=== PATIENT | female | born 1945 | race Caucasian/White ===

== ENCOUNTER 2017-12-20 04:09 | Inpatient (IN) | payer OTHER ==
[~2017-12-20] VITALS: Ht 154.9 cm; Wt 99.3 kg
[~2017-12-20 04:09] MED LIST: CALCIUM 500 +1 EAC5 PO; CO Q-10100 MG; DICLOFENAC SODI75 M2 PO; FIBER500 MG; JANUMET 50-1,01 EACH PO; LEVOTHYROXINE200 MC1 PO; MULTIPLE VITAM1 EACH; NIASPAN500 M1 PO
[2017-12-20] MEDS ORDERED: TRAMADOL HCL50 M1 PO (06:42)
[2017-12-20] MEDS ORDERED: CRESTOR5 M1 PO (06:42)
--- NOTE | 2017-12-20 09:13 | Surgical Discharge Summary ---
Visit Information Visit Dates Admission Date: 12/20/17 Discharge Date: 12/22/17 History of Present Illness Chief Complaint: PAIN R/T OA Medical History Isolation History: Standard Surgical History Pertinent Surgical History: hip replacement Review of Systems: SEE H&P Hospital Course Course Attending Physician: Johana BENJAMIN,Lucio Primary Care Physician: Marina BENJAMIN,Formerly Named [facility] Course: Patient was admitted to the hospital for an elective total joint replacement. Procedure was tolerated well and patient was transferred to a general surgical floor. Diet was advanced and tolerated. Physical therapy performed evaluation and treatment. At time of hospital discharge, vital signs were stable, neurovascular status was intact, and pain was controlled with the use of oral pain medications Complications: none Allergies: Coded Allergies: adhesive (RASH 12/08/17) ezetimibe (From VYTORIN) (LEG WEAKNESS 12/08/17) Disposition Summary Disposition Principal Diagnosis: primary oa right hip Additional Diagnosis: same, sp r total hip arthroplasty Discharge Disposition: home health services Discharge Instructions General Discharge Information Code Status: Full Code Patient's Diet: diabetic Patient's Activity: wbat Follow-Up Instructions/Appts: call to be seen in 2 weeks Medications at Discharge Discharge Medications: Stop taking the following medications: Diclofenac Sodium (Diclofenac Sodium) 75 MG TABLET.DR ORAL TWICE DAILY Tramadol HCl (Tramadol HCl) 50 MG TABLET ORAL 2X DAILY as needed for pain Continue taking these medications: Calcium Carbonate/Vitamin D3 (Calcium 500 + D Tablet) 500 MG-400 TABLET 1 Tablet ORAL TWICE DAILY Methylcellulose (Fiber) 500 MG TABLET Sitagliptin Phos/Metformin HCl (Janumet 50-1,000 MG Tablet) 50 MG-1,000 MG TABLET 1 Tablet ORAL TWICE DAILY Levothyroxine Sodium (Levothyroxine Sodium) 200 MCG TABLET 1 Tablet ORAL DAILY Niacin (Niaspan) 500 MG TAB.ER.24H 1 Tablet ORAL Every night Multivit With Calcium,Iron,Min (Multiple Vitamins For Women) 1 EACH TABLET Ubidecarenone (Co Q-10) 100 MG CAPSULE Rosuvastatin Calcium (Crestor) 5 MG TABLET 0.5 Tablet ORAL 3X/WK Start taking the following new medications: Apixaban (Eliquis) 2.5 MG TABLET 2.5 Milligram ORAL TWICE DAILY Qty = 60 No Refills Docusate Sodium (Docusate Sodium) 100 MG CAPSULE 100 Milligram ORAL TWICE DAILY as needed for CONSTIPATION Qty = 20 No Refills Oxycodone HCl/Acetaminophen (Percocet 5-325 MG Tablet) 5 MG-325 MG TABLET 1-2 Tablet ORAL EVERY 4 HOURS NEEDED as needed for PAIN Qty = 36 No Refills Sennosides/Docusate Sodium (Senna Plus Tablet) 8.6 MG-50 MG TABLET 2 Tablet ORAL AT BEDTIME NEEDED as needed for NO BM IN TWO DAYS Qty = 10 No Refills
--- NOTE | 2017-12-20 09:16 | Patient Discharge Instructions ---
Discharge Instructions General Discharge Information You were seen/treated for: Primary osteoarthritis right hip You had these procedures: Total hip arthroplasty, right Watch for these problems: Increasing pain despite the use of pain medication Increasing redness, warmth or swelling Drainage of any type from incision Inability to bear weight on operative leg Persistent nausea and vomiting Fever greater than 101.5 degrees Other wound care: Please keep wound clean and dry. No ointments or lotions of any type on or near incision. Your dressing will be changed by your nurse on the second day after your surgery. Daily dry dressing changes are recommended each day thereafter. Do not soak your wound- no tub baths/swimming. You may shower 48hr after surgery. Special Instructions: take medication as directed You will need to be on Eliquis, blood thinner to prevent blood clots, for the next 1 month Take pain medication as needed Diet Recommended Diet: Diabetic Activity Activity Limited to: Weight bear as tolerated Additional ACTIVITY Info: use assistive devices as needed Acute Coronary Syndrome Inclusion Criteria At DC or during hospital stay patient has or had the following: ACS DIAGNOSIS No Discharge Core Measures Meds if any: Prescribed or Continued at Discharge Meds if any: NOT Prescribed or Continued at Discharge Congestive Heart Failure Inclusion Criteria At DC or during hospital stay patient has or had the following: CHF DIAGNOSIS No Discharge Core Measures Meds if any: Prescribed or Continued at Discharge Meds if any: NOT Prescribed or Continued at Discharge Cerebrovascular accident Inclusion Criteria At DC or during hospital stay patient has or had the following: CVA/TIA Diagnosis No Discharge Core Measures Meds if any: Prescribed or Continued at Discharge Meds if any: NOT Prescribed or Continued at Discharge Venous thromboembolism Inclusion Criteria VTE Diagnosis No VTE Type NONE VTE Confirmed by (Test) NONE Discharge Core Measures - Per Current guidelines, there needs to be overlap - treatment for the first 5 days of Warfarin therapy. - If discharged on Warfarin prior to 5 days of - overlap therapy, the patient will need to be - assessed for post discharge needs including - *Post discharge parental anticoagulation - *Warfarin and/or parental anticoagulation education - *Follow up date to check INR post discharge At least 5 days overlap therapy as Inpatient No Meds if any: Prescribed or Continued at Discharge Note: Overlap Therapy is Warfarin and Anticoagulant Meds if any: NOT Prescribed or Continued at Discharge
--- NOTE | 2017-12-20 09:46 | Admission Core Measures ---
Acute Coronary Syndrome (CM) ACS Core Measures Acute Coronary Syndrome Diagnosis No Congestive Heart Failure (NEW) CHF Core Measures Congestive Heart Failure Diagnosis No Cerebrovascular Accident CVA Core Measures CVA/TIA Diagnosis No Venous Thromboembolism VTE Core Aditi (View Protocol) VTE Risk Factors Surgery No Mechanical VTE Prophylaxis d/t N/A MechProphylax Ordered No VTE Pharm Prophylaxis d/t NA PharmProphylax ordered Problem List As ranked by this Provider includes Assessment & Plan 1. Primary osteoarthritis of right hip HOME MEDS Home Med List Calcium Carbonate/Vitamin D3 (Calcium 500 + D Tablet) 500 MG-400 TABLET 1 TAB PO BID SUPPLEMENT (Reported) Diclofenac Sodium 75 MG TABLET.DR 1 TAB PO BID PAIN (Reported) Levothyroxine Sodium 200 MCG TABLET 1 TAB PO DAILY REPLACEMENT (Reported) Niacin (Niaspan) 500 MG TAB.ER.24H 1 TAB PO QPM SUPPLEMENT (Reported) Rosuvastatin Calcium (Crestor) 5 MG TABLET 0.5 TAB PO 3X/WK cholesterol ( Reported) Sitagliptin Phos/Metformin HCl (Janumet 50-1,000 MG Tablet) 50 MG-1,000 MG TABLET 1 TAB PO BID DM (Reported) Tramadol HCl 50 MG TABLET 1 TAB PO 2X DAILY PRN pain (Reported)
--- NOTE | 2017-12-20 10:00 | Operative Report ---
Operative/Inv Procedure Report Surgery Date: 12/20/17 Name of Procedure: Right total hip arthroplasty Pre-Operative Diagnosis: Right hip primary osteoarthritis Post-Operative Diagnosis: Same with final pathology pending Estimated Blood Loss: 50ml to 100ml Surgeon/Farm Consultant: Johana BENJAMIN,Manav Valdes PA Anesthesia: block Implants: Rosalia secure fit femoral stem size 8 with a 127 neck angle Size 52 acetabulum 36+0 Biolox femoral head Drains: None Specimens: Femoral head and acetabular reamings, degenerative labrum Microbiology: Urine Complications: None Condition: Stable Operative Indication: Patient is a 72-year-old woman with gradually worsening right hip symptoms. She was diagnosed with osteoarthritis but had continued increasing symptoms and destruction of the femoral head consistent with her diagnosis. She had symptoms that interfere with normal activities of daily living. Extent conservative measures did not result in any significant long-term relief and therefore she wished to proceed with total hip arthroplasty. Risks benefits and expectations of the surgical procedure were discussed which included but were not limited to persistent hip pain, need for subsequent surgery, infection, DVT, injury to blood vessel or nerve, leg length discrepancy dislocation and anesthesia risks. Operative/Procedure Note Note: Patient was brought to the operating room and transferred to the operating table. Once under appropriate anesthesia the patient was placed into a left lateral decubitus position with right side up. All bony prominences well- padded. The right lower extremity was prepped and draped in standard fashion. Preoperative IV and box were given prophylactically. A standard lateral incision was made for anticipated sup approach to the hip. The incision was taken down sharply to the underlying fascia. The fascia was incised in line with the skin incision. Hip was internally rotated the piriformis was identified and reflected posteriorly posterior capsule was visualized. Retractors were placed superiorly underneath the gluteus minimus tendon and the capsule as well as an inferior retractor. A central portion of the capsule was incised and reflected posteriorly for later repair. Superior and inferior portions of the capsule were excised. Hip was dislocated. Severe deformity of the femoral head was noted. This was sent to the lab. Retractors were placed to visualize the acetabulum. Again severe end-stage degenerative changes of the acetabulum were noted. Degenerative labral tissues were was excised and any soft tissue remnants were removed from the acetabular fossa. Reaming started with a size 46 and ending with a size 51 for anticipated insertion of a size 52 acetabular shell. A trial 50 was used to confirm circumferential reaming. I was satisfied with this. After copious irrigation the definitive size 52 acetabular shell was impacted in place with the appropriate anteversion and abduction based on preoperative templating, intraoperative measurements and the Rosalia tower. The bone of the SN was found to be fairly brittle soft which was noted during reaming process. 2 screws were placed in the safe zone in standard fashion. After irrigation of the acetabular shell the definitive liner to accept a 36 mm femoral head was impacted in place and the locking mechanism was confirmed. A lap sponges place and the acetabulum to protect the polyethylene during preparation of the femur. Femur was internally rotated 90 and flexed about 60. Retractors were placed I use a box osteotome to lateralize my insertion site. I then used hand reamers up to a size 8. Broaches to size 8. I left the last broach in place. I did a closed reduction with a 127 neck angle and a 36+0 femoral head. This restored patient's leg lengths. Patient did have a leg length discrepancy preoperatively with approximately 11/2 cm short on the right side. The stability was then tested. No evidence of anterior instability with simultaneous extension and excellent and external rotation. No sign of posterior instability with simultaneous internal rotation adduction and forward flexion to greater than 90. I was satisfied with the stability of the construct. I then removed all trial components from the femoral canal. Copious irrigation femoral canal followed. I then impacted the definitive size 8 secure fit femoral stem in place with the 127 neck angle. The trunnion was dried and a definitive size 36+0 Biolox femoral head was impacted in place and the locking mechanism was confirmed. The hip was reduced. I was satisfied with the stability once again. Copious irrigation followed every level closure. The capsule was closed with. This was followed by repair of the piriformis. Fascia was closed with interrupted #1 Vicryl suture. Subcutaneous tissues closed in 2 layers due to the depth of the wound with 2-0 Vicryl suture and skin was closed with lake. Appropriate just his were applied and patient was awakened and taken to recovery room in good condition. Blood loss approximately 100cc Discharge Disposition: PACU
--- NOTE | 2017-12-20 10:41 | RADIOLOGY REPORT ---
EXAMINATION: XR HIP, RIGHT CLINICAL INFORMATION: Status post total right hip replacement. COMPARISON: Right hip films dated 05/08/2013. TECHNIQUE: Single frontal view of the right hip. FINDINGS: The patient is status post total right hip arthroplasty with anatomic alignment seen on single frontal view. One of the acetabular screws projects slightly beyond the medial cortical margin of the iliac bone. No evidence of hardware failure or agdaagux bone fracture is seen. Cutaneous staple line is noted. IMPRESSION: Anatomic alignment on single view radiograph status post total right hip arthroplasty. No hardware failure or agdaagux bone fracture is seen.
[2017-12-20 11:50] VITALS: BP 140/80
--- NOTE | 2017-12-20 13:38 | PN- Orthopedic ---
Subjective Subjective: 72 Y/O FEMALE S/P RIGHT TOTAL HP REPLACEMENT PAIN CONTROLLED GUEVARA IN PLACE ONLY TAKING LIQUIDS NOW Objective Vital Signs and I&Os Vital Signs Date Time Temp Pulse Resp B/P B/P Pulse O2 O2 Flow FiO2 Mean Ox Delivery Rate 12/20 1150 97.5 86 20 140/80 97 Room Air Room Air Intake & Output 12/20 1600 12/20 0800 12/20 0000 12/19 1600 12/19 0800 12/19 0000 Intake Total Output Total Balance Patient 219 lb Weight Weight Reported by Patient Measurement Method Physical Exam: PATIENT ALERT AND ORIENTED FEELS WELL, NO COMPLAINTS VSS AFEBRILE CHEST- BREATHING UNLABORED, CTA HEART- RRR ABD- NONTENDER, NO DISTENTION RIGHT HIP -DRESSINGS CDI WITHOUT ERYTHEMA OR DRAINAGE THIGH WITH MILD EDEMA CALVES SOFT, DISTAL PULSES INTACT SENSORY MOTOR INTACT Current Medications: Current Medications Sig/Meghna Start time Last Medication Dose Route Stop Time Status Admin Acetaminophen 0 .STK-MED ONE 12/20 0653 DC PO Acetaminophen 650 MG ONCE 12/20 0000 DC PO 12/20 235 Apixaban 2.5 MG BID 12/21 09 AC PO Celecoxib 400 MG DAILY 12/21 0900 AC PO Celecoxib 400 MG ONCE 12/20 0000 DC PO 12/20 2359 Dexamethasone 0 .STK-MED ONE 12/20 0653 DC .ROUTE Dexamethasone 10 MG ONCE 12/20 0000 DC IV 12/20 235 Docusate Sodium 100 MG BID PRN 12/20 1000 AC PO Fentanyl Citrate 0 .STK-MED ONE 12/20 1329 DC .ROUTE Fentanyl Citrate 0 .STK-MED ONE 12/20 0742 DC .ROUTE Fentanyl Citrate 0 .STK-MED ONE 12/20 0659 DC .ROUTE Gabapentin 0 .STK-MED ONE 12/20 0654 DC PO Gabapentin 300 MG ONCE 12/20 0000 DC PO 12/20 2359 Levothyroxine Sodium 0.2 MG DAILY AC 12/21 0700 AC PO Metformin HCl 1,000 MG 0800,1700 12/20 1700 AC PO Midazolam HCl 0 .STK-MED ONE 12/20 0659 DC .ROUTE Morphine Sulfate 2 MG Q3P PRN 12/20 1145 AC IV Nicotinic Acid 500 MG AT BEDTIME 12/20 2100 AC PO Ondansetron HCl 4 MG Q6P PRN 12/20 1145 AC IV Oxycodone HCl 0 .STK-MED ONE 12/20 0653 DC PO Oxycodone HCl 10 MG ONCE 12/20 0000 DC PO 12/20 2359 Oxycodone/ 1 TAB Q4P PRN 12/20 1145 AC Acetaminophen PO Oxycodone/ 2 TAB Q4P PRN 12/20 1145 AC Acetaminophen PO Polyethylene Glycol 17 GM DAILY PRN 12/20 1000 AC PO Scopolamine HBr 0 .STK-MED ONE 12/20 0653 DC TOP Scopolamine HBr 1 PAT ONCE 12/20 0000 DC TOP 12/20 2359 Senna/Docusate Sodium 2 TAB AT BEDTIME NEED.. 12/20 1145 AC PO Sitagliptin Phosphate 50 MG BID 12/20 2100 AC PO Sodium Chloride 1,000 ML .[id number] 12/20 114 AC IV Tranexamic Acid 0 .STK-MED ONE 12/20 0659 DC IV Vancomycin HCl 1,500 MG ONCE ONE 12/20 1900 AC Sodium Chloride 250 ML IV 12/20 2028 Vancomycin HCl 1,500 MG ONCE 12/20 0000 DC Sodium Chloride 250 ML IV 12/20 2359 Assessment/Plan Assessment/Plan POSTOP RIGHT SARWAT DIET- ADVANCE TO REGULAR TONIGHT HEPLOCK FLUIDS WHEN TAKING POS AND D/C GUEVARA IN AM DVT PROPH ELIQUIS OOB TO CHAIR AND PTWBAT D/C PLANNING FOR HOME IF CLEARED BY PT Core Measures Venous Thromboembolism VTE Risk Factors Surgery No Mechanical VTE Prophylaxis d/t N/A MechProphylax Ordered No VTE Pharm Prophylaxis d/t NA PharmProphylax ordered
[2017-12-20 15:11] VITALS: BP 118/78
[2017-12-20 16:10] VITALS: BP 114/60
[2017-12-20 18:00] VITALS: BP 114/66
[2017-12-20 22:09] VITALS: BP 102/60
[2017-12-21 02:00] VITALS: BP 110/60
[2017-12-21 06:06] VITALS: BP 110/60
--- NOTE | 2017-12-21 08:05 | PN- Orthopedic ---
Subjective Subjective: Patient reports pain well controlled. Tolerating a diet without nausea or vomiting. Kohler removed this morning. PT at bedside to evaluate. Offers no complaints. Objective Vital Signs and I&Os Vital Signs Date Time Temp Pulse Resp B/P B/P Pulse O2 O2 Flow FiO2 Mean Ox Delivery Rate 12/21 0606 98.3 92 20 110/60 95 Room Air 12/21 0200 98.3 95 20 110/60 96 Room Air 12/20 2209 98.1 94 18 102/60 94 12/20 1800 97.9 102 20 114/66 95 Room Air 12/20 1610 98.5 104 18 114/60 95 Room Air 12/20 1511 97.6 90 16 118/78 97 Room Air 12/20 1150 97.5 86 20 140/80 97 Room Air Room Air Intake & Output 12/21 1600 12/21 0800 12/21 0000 12/20 1600 12/20 0812/20 0000 Intake Total 360 980 675 Output Total 800 950 980 Balance -440 30 -305 Intake, IV 280 225 Intake, Oral 360 700 450 Output, Urine 800 950 980 Patient 219 lb Weight Weight Reported by Patient Measurement Method Physical Exam: Gen - nad Cardiac - S1S2 Lungs - CTAB Ext - R hip dressing c/d/i, moves all extremities, motor and senosry intact, compartment soft, alps and abductor pillow in place. Current Medications: Current Medications Sig/Meghna Start time Last Medication Dose Route Stop Time Status Admin Acetaminophen 650 MG ONCE 12/20 0000 DC PO 12/20 235 Apixaban 2.5 MG BID 12/21 09 AC 12/21 PO 831 Celecoxib 400 MG DAILY 12/21 09 AC 12/21 PO 0832 Celecoxib 400 MG ONCE 12/20 0000 DC PO 12/20 235 Dexamethasone 10 MG ONCE 12/20 0000 DC IV 12/20 235 Docusate Sodium 100 MG BID PRN 12/20 1000 AC PO Fentanyl Citrate 0 .STK-MED ONE 12/20 1329 DC .ROUTE Gabapentin 300 MG ONCE 12/20 0000 DC PO 12/20 235 Levothyroxine Sodium 0.2 MG DAILY AC 12/21 0700 AC 12/21 PO 0600 Metformin HCl 1,000 MG 0800,1700 12/20 1700 AC 12/21 PO 0832 Morphine Sulfate 2 MG Q3P PRN 12/20 1145 AC IV Nicotinic Acid 500 MG AT BEDTIME 12/20 2100 AC 12/20 PO 1943 Ondansetron HCl 4 MG Q6P PRN 12/20 1145 AC IV Oxycodone HCl 10 MG ONCE 12/20 0000 DC PO 12/20 2359 Oxycodone/ 1 TAB Q4P PRN 12/20 1145 AC Acetaminophen PO Oxycodone/ 2 TAB Q4P PRN 12/20 1145 AC 12/21 Acetaminophen PO 0601 Polyethylene Glycol 17 GM DAILY PRN 12/20 1000 AC PO Scopolamine HBr 1 PAT ONCE 12/20 0000 DC TOP 12/20 2359 Senna/Docusate Sodium 2 TAB AT BEDTIME NEED.. 12/20 1145 AC PO Sitagliptin Phosphate 50 MG BID 12/20 2100 AC 12/21 PO 0832 Sodium Chloride 1,000 ML .[id number] 12/20 1145 DC IV Vancomycin HCl 1,500 MG ONCE ONE 12/20 1900 DC 12/20 Sodium Chloride 250 ML IV 12/20 2028 194 Vancomycin HCl 1,500 MG ONCE 12/20 0000 DC Sodium Chloride 250 ML IV 12/20 2359 Assessment/Plan Assessment/Plan 72 F POD 1 s/p R THR, recovering well Cont ada diet Pain regimen prn OOB w/ PT, WBAT DVT ppx - alps, elqiuis bid Pertinent home meds on board Hip precautions in place F/u labs D/c planning Will d/w Dr. Valenzuela Core Measures Venous Thromboembolism VTE Risk Factors Surgery No Mechanical VTE Prophylaxis d/t N/A MechProphylax Ordered No VTE Pharm Prophylaxis d/t NA PharmProphylax ordered
[2017-12-21 08:29] LABS: ABSOLUTE BASOPHIL COUNT 0 /CUMM (0.0-0.2); ABSOLUTE EOSINOPHIL COUNT 0 /CUMM (0.0-0.7); ABSOLUTE GRANULOCYTE CT 9.4 /CUMM (1.4-6.5); ABSOLUTE LYMPH COUNT 1.8 /CUMM (1.2-3.4); ABSOLUTE MONOCYTE COUNT 1.3 /CUMM (0.10-0.60); BASOPHIL % 0.3 % (0.0-2.0); EOSINOPHIL % 0 % (0-5); GRANULOCYTE % 74.7 % (42.2-75.2); HEMATOCRIT 32.3 % (37-47); MEAN CORPUSCULAR HGB 29.4 PG (27.0-31.0); MEAN CORPUSCULAR VOLUME 89.1 FL (81.0-99.0); MEAN PLATELET VOLUME 9.1 FL (7.4-10.4); PLATELET COUNT 294 /CUMM (130-400); RBC DISTRIBUTION WIDTH 13.7 % (11.5-14.5); RED BLOOD CELL CT 3.62 /CUMM (4.20-5.40); WHITE BLOOD CELL COUNT 12.6 /CUMM (4.8-10.8)
[2017-12-21 14:00] VITALS: BP 130/60
[2017-12-21 21:40] VITALS: BP 138/70
[2017-12-22 05:54] VITALS: BP 134/70
--- NOTE | 2017-12-22 07:18 | PN- Orthopedic ---
Subjective Subjective: No complaints, recovering well, no fever no flulike illness. Hip pain is controlled. Ambulating well. Would like to be discharged home today Objective Vital Signs and I&Os Vital Signs Date Time Temp Pulse Resp B/P B/P Pulse O2 O2 Flow FiO2 Mean Ox Delivery Rate 12/22 0554 98.9 111 18 134/70 96 12/21 2140 98.6 83 18 138/70 95 12/21 1400 97.0 85 20 130/60 95 Room Air Intake & Output 12/22 0000 12/21 1600 12/21 0812/21 0000 12/20 1600 Intake Total 360 800 720 360 980 675 Output Total 800 950 980 Balance 360 800 720 -440 30 -305 Intake, IV 280 225 Intake, Oral 360 800 720 360 700 450 Number 0 Bowel Movements Output, Urine 800 950 980 Patient 219 lb Weight Weight Reported by Patient Measurement Method Physical Exam: Well-developed well-nourished no apparent distress. HEENT: Atraumatic, extraocular motion intact Neck: Supple, no lymphadenopathy Respiratory: No respiratory distress Extremities: No edema RIGHT lower extremity hip dressing in place, Dressing clean dry and intact with minimal bloody staining, dressing changed, dry sterile dressing applied Incision without erythema Mild thigh swelling No signs of infection. No shortening or rotation Hip range of motion is limited and without unexpected pain Neurovascularly intact distally Bilateral calves are supple, nontender. Neuro: Alert and oriented x3 Psych: Mood affect normal, normal memory normal judgment. Skin: Warm and dry, no rash on exposed skin Results Last 48 Hours of Labs: Laboratory Tests 12/21 UNK Chemistry Sodium (137 - 145 mmol/L) 138 Potassium (3.5 - 5.1 mmol/L) 3.8 Chloride (98 - 107 mmol/L) 103 Carbon Dioxide (22 - 30 mmol/L) 28 Anion Gap (5 - 16) 7 BUN (7 - 17 mg/dL) 13 Creatinine (0.5 - 1.0 mg/dL) 0.5 Estimated GFR (>60 ml/min) > 60 BUN/Creatinine Ratio (7 - 25 %) 26.0 H Hematology CBC w Diff NO MAN DIFF REQ WBC (4.8 - 10.8 /CUMM) 12.6 H RBC (4.20 - 5.40 /CUMM) 3.62 L Hgb (12.0 - 16.0 G/DL) 10.6 L Hct (37 - 47 %) 32.3 L MCV (81.0 - 99.0 FL) 89.1 MCH (27.0 - 31.0 PG) 29.4 MCHC (33.0 - 37.0 G/DL) 33.0 RDW (11.5 - 14.5 %) 13.7 Plt Count (130 - 400 /CUMM) 294 MPV (7.4 - 10.4 FL) 9.1 Gran % (42.2 - 75.2 %) 74.7 Lymphocytes % (20.5 - 51.1 %) 14.6 L Monocytes % (1.7 - 9.3 %) 10.4 H Eosinophils % (0 - 5 %) 0 Basophils % (0.0 - 2.0 %) 0.3 Absolute Granulocytes (1.4 - 6.5 /CUMM) 9.4 H Absolute Lymphocytes (1.2 - 3.4 /CUMM) 1.8 Absolute Monocytes (0.10 - 0.60 /CUMM) 1.3 H Absolute Eosinophils (0.0 - 0.7 /CUMM) 0 Absolute Basophils (0.0 - 0.2 /CUMM) 0 Assessment/Plan Assessment/Plan 72 F POD 2 s/p R SARWAT Cont ada diet Pain regimen prn OOB w/ PT, WBAT DVT ppx - alps, elqiuis bid Hip precautions in place Dressing change today, dry sterile dressing applied Plan for discharge to home today with home health services Core Measures Venous Thromboembolism VTE Risk Factors Surgery No Mechanical VTE Prophylaxis d/t N/A MechProphylax Ordered No VTE Pharm Prophylaxis d/t NA PharmProphylax ordered
[2017-12-22] MEDS ORDERED: SENNA PLUS TAB1 EACH PO (07:21)
[2017-12-22] MEDS ORDERED: PERCOCET 5-3251 EACH PO (07:21)
[2017-12-22] MEDS ORDERED: ELIQUIS2.5 M1 PO (07:21)
[2017-12-22] MEDS ORDERED: DOCUSATE SODIU100 M3 PO (07:21)
== END 2017-12-22 10:48 | disposition home health service (06) | DRG 470 ==
LOC: SDA 04:09 → 2NA 04:09 → ENRESERV 09:58 → ENTRNSPT 11:09 → EDTRNSPT 11:34 → EDTRNSPTSTS 11:34 → 2NA 11:42 → CMPTRNSPT 12:02 → ENPENDDIS 12-22 07:36 → 2NA 12-22 10:48 → ENTRNSPT 12-22 10:51 → EDTRNSPTSTS 12-22 11:02 → EDTRNSPT 12-22 11:02 → CMPTRNSPT 12-22 11:29
PROVIDERS: Physician Assistant Surgical
PROC: 0SR90JZ Replacement of Right Hip Joint with Synthetic Substitute, Open Approach (ICD-10-PCS; principal; 2017-12-20)
DX: M16.11 Unilateral primary osteoarthritis, right hip (principal); Z68.41 Body mass index [BMI] 40.0-44.9, adult; E66.9 Obesity, unspecified; E03.9 Hypothyroidism, unspecified; E11.9 Type 2 diabetes mellitus without complications; E78.5 Hyperlipidemia, unspecified; Z72.0 Tobacco use
CPT/HCPCS: 2NASP; 73501; 82436; 87086; 97110-GO; 97116-GO; 97161-GP; 97530-GO; C1713; J1100; J2405; J3370; J7040